=== PATIENT | male | born 1980 | race Caucasian/White ===

== ENCOUNTER → 2025-02-15 | Emergency (ER) | payer OTHER ==
[~2025-02-15] VITALS: Ht 182.9 cm; Wt 77.1 kg
[~2025-02-15] MED LIST: ALBUTEROL SULFATE 3 ML/2.5 MG AMPUL.NEB IH ONE; ALBUTEROL SULFATE 3 ML/2.5 MG AMPUL.NEB IH SCH; CODEINE/PROMETHAZINE HCL 1 ML ML PO ONE; PREDNISONE 20 MG TABLET PO ONE
== END | disposition home or self-care (01) ==
LOC: ER 11:35
DX: J45.40 Moderate persistent asthma, uncomplicated (principal); Z88.0 Allergy status to penicillin